=== PATIENT | male | born 1985 | race American Indian/Alaskan Native ===

== ENCOUNTER 2016-06-26 10:31 | Day surgery (SDC) | payer OTHER ==
[2016-06-26] MEDS ORDERED: NACL BACTERIOSTATIC INFILTRATI ONE (11:09)
--- NOTE | 2016-06-26 11:54 | Anesthesia Day of Surgery ---
Anesthesia Day of Surgery - Day of Surgery Patient Examined: Yes Patient H&P Reviewed: Yes Patient is NPO: Yes
--- NOTE | 2016-06-26 11:54 | Anesthesia Consultation ---
<ABBIE DIAZ - Last Filed: 06/26/16 11:53> Anesthesia Consult and Med Hx Date of service: 06/26/16 - Airway Anesthetic Teeth Evaluation: Good ROM Head & Neck: Adequate Mental/Hyoid Distance: Adequate Mallampati Class: Class I Intubation Access Assessment: Good - Pre-Operative Health Status ASA Pre-Surgery Classification: ASA1 Proposed Anesthetic Plan: General - Pulmonary Hx Smoking: Yes (marijuana) - Central Nervous System Hx Psychiatric Problems: No - Other Systems Hx Substance Use: Yes (SMOKES MARIJUANA DAILY) Hx Cancer: No <JOSELIN FISHER - Last Filed: 06/26/16 12:58> Anesthesia Consult and Med Hx - Additional Comments Anesthesia Medical History Comments: change to ASA 2 due to marijuana smoker
[2016-06-26] MEDS ORDERED: PEPCID IV NR (12:00)
[2016-06-26] MEDS ORDERED: VERSED IV NR (12:00)
[2016-06-26] MEDS ORDERED: LACTATED RINGERS 1,000 ML IV SCH (12:00)
[2016-06-26] MEDS ORDERED: DIPRIVAN 10 MG/ML IV ONE ×2 (12:09→12:57)
[2016-06-26] MEDS ORDERED: SUBLIMAZE ONE (12:09)
[2016-06-26] MEDS ORDERED: XYLOCAINE MPF 2% ONE (12:12)
[2016-06-26] MEDS ORDERED: ZOFRAN IV PRN (12:57)
[2016-06-26] MEDS ORDERED: PERCOCET 5/325 PO PRN (12:57)
[2016-06-26] MEDS ORDERED: ANCEF/STERILE WATER 2 GM/20 ML IV NR (13:00)
[2016-06-26] MEDS ORDERED: DECADRON ONE (13:03)
[2016-06-26] MEDS ORDERED: NACL 0.9% IR ONE (13:25)
[2016-06-26] MEDS ORDERED: LACTATED RINGERS 0 ML ONE (13:40)
[2016-06-26] MEDS ORDERED: LACTATED RINGERS 1,000 ML ONE (13:40)
[2016-06-26] MEDS ORDERED: TORADOL ONE (14:00)
--- NOTE | 2016-06-26 14:02 | Post Operative Note ---
Pre-op diagnosis: bilat scrotal masses Post-op diagnosis: same Findings: as above Procedure: excision bilat scrotal masses Anesthesia: GETA Surgeon: TEMO FLORES Estimated blood loss: minimal Pathology: list (bilat masses) Specimen disposition: to lab Condition: stable Disposition: PACU
--- NOTE | 2016-06-26 14:04 | Discharge Summary ---
Short Stay Discharge Plan Activity: other (no straining ) Weight Bearing Status: Full Weight Bearing Diet: regular, low fat Wound: open to air Special Instructions: other (ice packs ... scrotal support ) Durable Medical Equipment Needed Upon Discharge: other (ice in RR) Follow up with: PRIMARY CARE, [Primary Care Provider] - 7 Days TEMO FLORES MD [Staff Physician] - 10 Days
--- NOTE | 2016-06-26 14:21 | Operative Report ---
PREOPERATIVE DIAGNOSIS: Bilateral scrotal masses. POSTOPERATIVE DIAGNOSIS: Bilateral scrotal masses. PROCEDURE: Excision of what appeared to be a sebaceous cyst in right scrotum and possibly a small spermatocele or small epidermal cyst in the left hemiscrotum. SURGEON: Roman Harris MD ANESTHESIA: General. FINDINGS: This is a gentleman with bilateral scrotal masses. These appeared very superficial. He now presents for excision. DESCRIPTION OF PROCEDURE: The patient was brought to the operating room and placed on the operating table. Following induction of anesthesia, placed in the supine position, prepped and draped in usual sterile fashion. Using a 15-blade knife, the sebaceous cyst appearing lesion was excised in total with the skin. This area was cauterized. It was irrigated and then it was closed with 3-4 sutures of 3-0 chromic. On the left side, this circumferential symmetrical nodule appeared to be a cyst. An incision was made, carried down to the capsule, which was dissected free. At the base, we cauterized the base and tied any small vessels that were contributing to the vascularity. This was closed in 2 layers with 3-0 chromic. The patient tolerated the procedure well. Family notified, brought to recovery in stable condition. JOB# [id number] LATISHA/VERONIKA
[2016-06-26] MEDS: DILAUDID IV PRN ×2 (14:26→14:33)
--- NOTE | 2016-06-26 14:43 | Post Anesthesia Evaluation ---
- Post Anesthesia Evaluation Patient Participated: Yes Airway Patent: Yes Stable Respiratory Function: Yes Nausea/Vomiting: No Temp > 96.8F: Yes Pain Manageable: Yes Adequeate Hydration: Yes Anesthesia Complications: No Block Receding Appropriately: Not Applicable Patient on Ventilator: No
[2016-06-26 19:54] VITALS: BP 156/88
== END 2016-06-26 15:22 | disposition home or self-care (01) ==
LOC: OR 10:31
PROVIDERS: ATTEND Urology
DX: L72.0 Epidermal cyst (principal)
CPT/HCPCS: 11422; 12041; 88304; 88307; J0690; J1100; J1170; J1885; J2250; J2405; J2704; J3010; J7120